=== PATIENT | male | born 1955 | race Caucasian/White ===

== ENCOUNTER 2021-06-28 08:20 | Day surgery (SDC) | payer OTHER ==
[2021-06-28] MEDS ORDERED: LACTATED RINGERS 1,000 ML IV ONE ×2 (08:29→10:19)
--- NOTE | 2021-06-28 08:55 | ANESTHESIA ---
Pre-Anesthesia VS, & Labs - Diagnosis screening - Procedure colonoscopy Vital Signs: Temp Pulse Resp BP Pulse Ox 36.7 C 61 16 133/82 H 94 06/28/21 08:36 06/28/21 08:36 06/28/21 08:36 06/28/21 08:36 06/28/21 08:36 Height: 5 ft 11 in Weight (kg): 107 kg Body Mass Index: 32.8 BMI Classification: Obese - NPO Other (crystal light clear at 8:30 this am, no solids for a 24hrs) Home Medications and Allergies Home Medications: Ambulatory Orders Amlodipine Besylate [Norvasc] 1 tab PO DAILY 06/27/21 Atorvastatin Calcium 1 tab PO DAILY 06/27/21 FLUoxetine [PROzac] 20 mg PO DAILY 06/27/21 Levothyroxine Sodium [Levothyroxine] 1 tab PO DAILY 06/27/21 Levothyroxine Sodium [Synthroid] 1 tab PO DAILY 06/27/21 Losartan Potassium [Cozaar] 1 tab PO DAILY 06/27/21 allopurinoL [Zyloprim] 1 tab PO DAILY 06/27/21 hydroCHLOROthiazide [Hydrochlorothiazide] 12.5 mg PO DAILY 06/27/21 Amlodipine Besylate [Norvasc] 1 tab PO DAILY 06/27/21 Atorvastatin Calcium 1 tab PO DAILY 06/27/21 FLUoxetine [PROzac] 20 mg PO DAILY 06/27/21 Levothyroxine Sodium [Levothyroxine] 1 tab PO DAILY 06/27/21 Levothyroxine Sodium [Synthroid] 1 tab PO DAILY 06/27/21 Losartan Potassium [Cozaar] 1 tab PO DAILY 06/27/21 allopurinoL [Zyloprim] 1 tab PO DAILY 06/27/21 hydroCHLOROthiazide [Hydrochlorothiazide] 12.5 mg PO DAILY 06/27/21 Allergies/Adverse Reactions: Allergies Allergy/AdvReac Type Severity Reaction Status Date / Time No Known Drug Allergies Allergy Verified 06/27/21 14:38 Anes History & Medical History - Anesthetic History Anesthesia Complications: reports: No previous complications - Medical History Cardiovascular: reports: Hypertension, High cholesterol Pulmonary: reports: None Musculoskeletal: reports: Gout Smoking Status: Never smoker History of Cancer?: No Exam General: Alert, Oriented x3 Dental: WNL Mouth Opening: Greater than 4 Fingerbreadths Mallampati classification: II Respiratory: Lungs clear Cardiovascular: Regular rate Plan Anesthesia Type: Total IV Consent for Procedure(s) Verified and Reviewed: Yes Code Status: Attempt Resuscitation ASA classification: 2-Mild systemic disease Is this case an emergency?: No
[2021-06-28] MEDS ORDERED: PROPOFOL 500 MG/50 ML 500 MG/50 ML VIAL ONE (09:07)
[2021-06-28] MEDS ORDERED: MIDAZOLAM 2 MG/2 ML VIAL ONE (09:40)
[2021-06-28 10:32] VITALS: BP 110/77
--- NOTE | 2021-06-28 13:07 | ANESTHESIA POST OP EVALUATION ---
Anesthesia Post Eval - Post Anesthesia Eval Vitals: Last Vital Signs Temp 36.4 C L 06/28/21 10:30 Pulse 64 06/28/21 10:30 Resp 15 06/28/21 10:30 BP 110/77 06/28/21 10:30 Pulse Ox 95 06/28/21 10:30 CV Function Including HR & BP: Stable Pain Control: Satisfactory Nausea & Vomiting: Negative Mental Status: Baseline Respiratory Status: Airway Patent Hydration Status: Satisfactory Anesthesia Complications: None
== END 2021-06-28 08:21 | disposition home or self-care (01) ==
LOC: SDS 08:20
PROVIDERS: ATTEND Surgery
PROC: 0DBN8ZZ Excision of Sigmoid Colon, Via Natural or Artificial Opening Endoscopic (ICD-10-PCS; principal; 2021-06-28 09:30)
DX: Z12.11 Encounter for screening for malignant neoplasm of colon (principal); D12.5 Benign neoplasm of sigmoid colon; K64.1 Second degree hemorrhoids; E66.9 Obesity, unspecified; Z68.32 Body mass index [BMI] 32.0-32.9, adult
CPT/HCPCS: 45385; J7120